=== PATIENT | male | born 1960 | race Two or more races ===

== ENCOUNTER 2023-09-26 06:00 | Outpatient (CLI) | payer OTHER ==
[~2023-09-26] VITALS: Ht 167.6 cm; Wt 68.9 kg
[2023-09-26 11:30] LABS: HEMATOCRIT 42.9 % (39.0-48.0); HEMOGLOBIN 14.8 g/dL (13-16.00); MEAN CELL VOLUME 87.9 fL (80.0-100.00); MEAN CORPUSCULAR HEMOGLOBIN 30.3 pg (27.00-32.0); MEAN CORPUSCULAR HGB CONC 34.4 g/dl (32.0-36.0); PLATELET COUNT 219 K/uL (150-450); RED BLOOD COUNT 4.89 M/uL (4.00-6.00); RED CELL DISTRIBUTION WIDTH 13.4 % (11.5-14.5)
[2023-09-26 11:53] LABS: PH,URINE 5.5 (5.0-8.0); URINE APPEARANCE Clear; URINE BILIRRUBIN Negative (NEGATIVE); URINE BLOOD Negative; URINE COLOR Yellow; URINE LEUKOCYTE Negative; URINE NITRATE Negative; URINE PROTEIN Negative (NEGATIVE); URINE UROBILINOGEN 0.2 E.U./dl
[2023-09-26 11:53] LABS: PROTHROMBIN TIME 10.5 SECONDS (9.0-11.5)
[2023-09-26 11:59] LABS: URINE EPITHELIAL CELLS 1.6 uL (0.0-38.8); URINE RBC 5.7 uL (0.0-20.8); URINE WBC 3.2 uL (0.0-23.2)
[2023-09-26 11:59] LABS: ALBUMIN 4.2 gm/dL (3.4-5.0); BILIRUBIN TOTAL 0.87 mg/dL (0.3-1.2); CALCIUM 9.5 mg/dL (8.5-10.1); CREATININE SERUM 0.69 mg/dL (0.70-1.30); GFR 116.57; GLOBULINA 3.1 G/DL (2.4-3.5); POTASSIUM 5.02 mEq/L (3.5-5.1); TOTAL PROTEIN 7.3 gm/dL (6.4-8.2)
[2023-09-26 12:17] LABS: URINE BACTERIA 3.7 uL (0.0-1933); URINE GLUCOSE >=1000 MG/DL (NEGATIVE)
[2023-09-26] MEDS ORDERED: HORIZANT300 MG PO (12:28)
[2023-09-26] MEDS ORDERED: JARDIANCE25 MG PO (12:28)
[2023-09-26] MEDS ORDERED: TIROSINT112 MCG PO (12:29)
[2023-09-26] MEDS ORDERED: ZESTRIL10 M1 PO (12:29)
[2023-09-26] MEDS ORDERED: SIMVASTATIN80 MG PO (12:30)
[2023-09-26] MEDS ORDERED: AMBIEN5 MG PO (12:30)
[2023-09-26] MEDS ORDERED: METFO PO (12:30)
== END 2023-09-26 06:15 | disposition home or self-care (01) ==
LOC: LAB 06:00 → SURG 10-02 07:00 → EDSTATUS 10-02 07:00 → SURG 10-02 10:30
PROVIDERS: ATTEND Orthopaedic Surgery Sports Medicine
DX: M17.12 Unilateral primary osteoarthritis, left knee (principal)

== ENCOUNTER 2023-11-09 09:45 | Inpatient (IN) | payer OTHER ==
[~2023-11-09] VITALS: Ht 167.6 cm; Wt 69.4 kg
[~2023-11-09 09:45] MED LIST: AMBIEN5 MG PO; HORIZANT300 MG PO; JARDIANCE25 MG PO; METFO PO; SIMVASTATIN80 MG PO; TIROSINT112 MCG PO; ZESTRIL10 M1 PO
[2023-11-09 14:12] LABS: HEMATOCRIT 43.4 % (39.0-48.0); HEMOGLOBIN 15.1 g/dL (13-16.00); MEAN CELL VOLUME 87.9 fL (80.0-100.00); MEAN CORPUSCULAR HEMOGLOBIN 30.5 pg (27.00-32.0); MEAN CORPUSCULAR HGB CONC 34.7 g/dl (32.0-36.0); PLATELET COUNT 243 K/uL (150-450); RED BLOOD COUNT 4.94 M/uL (4.00-6.00); RED CELL DISTRIBUTION WIDTH 13.4 % (11.5-14.5)
[2023-11-09 14:13] LABS: PH,URINE 5.5 (5.0-8.0); URINE APPEARANCE Clear; URINE BILIRRUBIN Negative (NEGATIVE); URINE BLOOD Trace; URINE COLOR Yellow; URINE LEUKOCYTE Negative; URINE NITRATE Negative; URINE PROTEIN Negative (NEGATIVE); URINE UROBILINOGEN 0.2 E.U./dl
[2023-11-09 14:18] LABS: URINE BACTERIA 22.6 uL (0.0-1933); URINE EPITHELIAL CELLS 2.9 uL (0.0-38.8); URINE RBC 10.7 uL (0.0-20.8); URINE WBC 2.3 uL (0.0-23.2)
[2023-11-09 14:24] LABS: URINE GLUCOSE 500 MG/DL (NEGATIVE)
[2023-11-09 14:43] LABS: INR 1.02; PARTIAL THROMBOPLASTIN TIME 28.8 SECONDS (22.0-34.0); PROTHROMBIN TIME 10.7 SECONDS (9.0-11.5)
[2023-11-09 14:45] LABS: ALBUMIN 4.5 gm/dL (3.4-5.0); BILIRUBIN TOTAL 0.91 mg/dL (0.3-1.2); CALCIUM 9.8 mg/dL (8.5-10.1); CREATININE SERUM 0.75 mg/dL (0.70-1.30); GFR 105.87; POTASSIUM 4.53 mEq/L (3.5-5.1); TOTAL PROTEIN 7.5 gm/dL (6.4-8.2)
[2023-11-13 11:23] LABS: HEMATOCRIT 38.5 % (39.0-48.0); HEMOGLOBIN 13.3 g/dL (13-16.00); RED BLOOD COUNT 4.39 M/uL (4.00-6.00)
[2023-11-14 07:51] LABS: HEMATOCRIT 36.3 % (39.0-48.0); HEMOGLOBIN 12.4 g/dL (13-16.00); MEAN CELL VOLUME 87.8 fL (80.0-100.00); MEAN CORPUSCULAR HGB CONC 34.1 g/dl (32.0-36.0); PLATELET COUNT 172 K/uL (150-450); RED BLOOD COUNT 4.14 M/uL (4.00-6.00)
[2023-11-15] MEDS ORDERED: INTEGRA PLUS C1 EACH PO (06:34)
[2023-11-15] MEDS ORDERED: BACTRIM DS TAB1 EACH PO (06:34)
[2023-11-15] MEDS ORDERED: XARELTO10 MG PO (06:34)
[2023-11-15] MEDS ORDERED: OXYC1TAB9 PO (06:34)
[2023-11-15 07:18] LABS: HEMATOCRIT 33.7 % (39.0-48.0); MEAN CELL VOLUME 85.5 fL (80.0-100.00); MEAN CORPUSCULAR HEMOGLOBIN 30.3 pg (27.00-32.0); MEAN CORPUSCULAR HGB CONC 35.5 g/dl (32.0-36.0); PLATELET COUNT 185 K/uL (150-450); RED BLOOD COUNT 3.94 M/uL (4.00-6.00); RED CELL DISTRIBUTION WIDTH 13.2 % (11.5-14.5)
== END 2023-11-15 20:32 | DRG 470 ==
LOC: O/R 11-13 05:39 → SURG 11-13 05:39
PROVIDERS: ADMIT Orthopaedic Surgery Sports Medicine; ATTEND Orthopaedic Surgery Sports Medicine
PROC: 0SRD0J9 Replacement of Left Knee Joint with Synthetic Substitute, Cemented, Open Approach (ICD-10-PCS; principal; 2023-11-13 10:30)
DX: M17.12 Unilateral primary osteoarthritis, left knee (principal)

== ENCOUNTER 2023-12-25 06:35 | Day surgery (SDC) | payer OTHER ==
[2023-12-22 11:24] LABS: HEMATOCRIT 40.6 % (39.0-48.0); HEMOGLOBIN 13.7 g/dL (13-16.00); MEAN CELL VOLUME 87.8 fL (80.0-100.00); MEAN CORPUSCULAR HEMOGLOBIN 29.7 pg (27.00-32.0); MEAN CORPUSCULAR HGB CONC 33.8 g/dl (32.0-36.0); PLATELET COUNT 306 K/uL (150-450); RED BLOOD COUNT 4.62 M/uL (4.00-6.00); RED CELL DISTRIBUTION WIDTH 14.3 % (11.5-14.5)
[2023-12-22 11:27] LABS: PH,URINE 5.5 (5.0-8.0); URINE APPEARANCE Clear; URINE BILIRRUBIN Negative (NEGATIVE); URINE BLOOD Negative; URINE COLOR Yellow; URINE LEUKOCYTE Negative; URINE NITRATE Negative; URINE PROTEIN Negative (NEGATIVE); URINE UROBILINOGEN 0.2 E.U./dl
[2023-12-22 11:28] LABS: URINE EPITHELIAL CELLS 3.7 uL (0.0-38.8); URINE RBC 12.7 uL (0.0-20.8); URINE WBC 3.2 uL (0.0-23.2)
[2023-12-22 11:35] LABS: URINE BACTERIA 2.5 uL (0.0-1933); URINE GLUCOSE >=1000 MG/DL (NEGATIVE)
[2023-12-22 12:16] LABS: INR 0.99; PARTIAL THROMBOPLASTIN TIME 27.4 SECONDS (22.0-34.0); PROTHROMBIN TIME 10.4 SECONDS (9.0-11.5)
[2023-12-22 12:17] LABS: ALBUMIN 4.2 gm/dL (3.4-5.0); BILIRUBIN TOTAL 0.63 mg/dL (0.3-1.2); CALCIUM 10.2 mg/dL (8.5-10.1); CREATININE SERUM 0.68 mg/dL (0.70-1.30); GFR 118.55; GLOBULINA 3.5 G/DL (2.4-3.5); POTASSIUM 4.68 mEq/L (3.5-5.1); TOTAL PROTEIN 7.7 gm/dL (6.4-8.2)
[~2023-12-25 06:35] MED LIST changes: +BACTRIM DS TAB1 EACH PO; +GLUMETZA1000 MG; +INTEGRA PLUS C1 EACH PO; +OXYC1TAB9 PO; +XARELTO10 MG PO
[2023-12-25] MEDS ORDERED: CEFAZOLIN SODIUM 1,000 MG VIAL ONE (09:00)
[2023-12-25] MEDS ORDERED: KETOROLAC TROMETHAMINE 60 MG VIAL IM ONE ×2 (10:44→11:15)
[2023-12-25] MEDS ORDERED: LIDOCAINE HCL 1%/Epi 20ML VIAL IJ ONE ×2 (10:45→11:15)
[2023-12-25] MEDS ORDERED: BUPIVACAINE HCL/PF 0.5% 30ML ML ONE (10:45)
[2023-12-25] MEDS ORDERED: MORPHINE SULFATE 4 MG/ML VIAL IV ONE (11:15)
[2023-12-25] MEDS ORDERED: BUPIVACAINE HCL 30 ML VIAL IJ ONE (11:15)
[2023-12-25] MEDS ORDERED: CEFAZOLIN SODIUM 1,000 MG VIAL IV ONE ×2 (11:15→13:15)
[2023-12-25] MEDS ORDERED: MEPERIDINE HCL/PF 25 MG/ML VIAL IM PRN (13:15)
[2023-12-25] MEDS ORDERED: PROMETHAZINE HCL 25 MG/ML AMPUL IM PRN (13:15)
[2023-12-25] MEDS ORDERED: OxyCODONE HCL/APAP UD (PERCOCET) PO PRN (13:15)
[2023-12-25] MEDS ORDERED: DUI500 PO (13:18)
[2023-12-25] MEDS ORDERED: OXYC1TAB9 PO (13:18)
[2023-12-25] MEDS ORDERED: CEFADROXIL 500 MG CAPSULE PO SCH (21:00)
== END 2023-12-25 14:30 | disposition home or self-care (01) ==
LOC: CIR.AMB 06:35
PROVIDERS: ATTEND Orthopaedic Surgery Sports Medicine
DX: M24.562 Contracture, left knee (principal); Z20.822 Contact with and (suspected) exposure to COVID-19; I10 Essential (primary) hypertension